=== PATIENT | male | born 1950 | race Caucasian/White ===

== ENCOUNTER 2017-03-18 08:15 | Day surgery (SDC) | payer MEDICARE, OTHER ==
[2017-03-18] MEDS ORDERED: LOSARTAN POT50 MG PO (08:40)
[2017-03-18] MEDS ORDERED: WARFARIN4 MG PO (08:40)
[2017-03-18 08:54] VITALS: BP 117/54
== END 2017-03-18 09:00 | disposition home or self-care (01) ==
LOC: ORM 08:15
PROVIDERS: ATTEND Urology
DX: N20.0 Calculus of kidney (principal); Z53.8 Procedure and treatment not carried out for other reasons
CPT/HCPCS: G0463; Q9967

== ENCOUNTER 2017-04-27 10:19 | Inpatient (IN) | payer MEDICARE, OTHER ==
[~2017-04-27] VITALS: Ht 190.5 cm; Wt 123.0 kg
[~2017-04-27 10:19] MED LIST: LOSARTAN POT50 MG PO; WARFARIN4 MG PO
--- NOTE | 2017-04-27 10:44 | NUR ---
PT TO ROOM FOR EXAM
--- NOTE | 2017-04-27 11:10 | NUR ---
INTRODUCED SELF TO PT. PT REPORTS BILATERAL FLANK PAIN AND PAINFUL URINATION. 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 TEMP 100.1. PT AWARE OF PLAN OF CARE AND WAIT TIME. CALL SIDDIQUI WITHIN REACH.
[2017-04-27 11:22] LABS: HEMATOCRIT 39.3 % (39.0-50.0); HEMOGLOBIN 12.8 g/dl (14.0-18.0); IMMATURE GRANULOCYTES 0.3 % (0.0-1.0); MEAN CELL VOLUME 92.5 fL CALC (80.0-100.0); MEAN CORPUSCULAR HGB 30.1 pG CALC (26.0-32.0); MEAN CORPUSCULAR HGB CONC 32.6 g/L CALC (32.0-36.0); NEUT# 9.4 thou/uL (1.82-7.42); RED BLOOD COUNT 4.25 mill/uL (4.70-6.10); RED CELL DISTRI WIDTH 13.8 % (11.5-15.5)
[2017-04-27 11:38] LABS: ALBUMIN 3.6 g/dL (3.2-5.0); ALKALINE PHOSPHATASE 86 u/l (38-126); ANION GAP 16 (6-22 (CALC)); BILIRUBIN, TOTAL 1.1 mg/dL (0.0-1.4); BUN 13 mg/dL (8-23); BUN/CREATININE RATIO 11 (12-20 (CALC)); CALCIUM 8.8 mg/dL (8.4-10.2); CARBON DIOXIDE 23 mmol/l (22-30); CHLORIDE 105 mmol/l (95-108); CREATININE 1.2 mg/dL (0.7-1.3); GFR > 60 ML/MIN (>=60 (CALC)); GFR FOR AFR.AMER. > 60 ML/MIN (>=60 (CALC)); GLUCOSE 102 mg/dL (82-115); SGOT/AST 16 u/l (19-48); SGPT/ALT 26 u/l (11-66); SODIUM 140 mmol/l (137-146); TOTAL PROTEIN 6.9 g/dL (6.3-8.2)
--- NOTE | 2017-04-27 11:55 | NUR ---
TEMP RECHECK 100.7. NOTIFIED AND AWITING NEW ORDERS. PT REQUESTING BLANKET AND INFORMED THAT HE IS UNABLE TO HAVE BLANKET UNTIL TEMP GOES DOWN. WILL CONTINUE TO MONITOR.
[2017-04-27 12:06] LABS: URINE BILIRUBIN - DIPSTICK SMALL (NEGATIVE); URINE BLOOD DIPSTICK LARGE (NEGATIVE); URINE COLOR YELLOW; URINE GLUCOSE - DIPSTICK NEGATIVE (NEGATIVE); URINE KETONE TRACE mg/dL (NEGATIVE); URINE LEUK ESTERASE MODERATE (NEGATIVE); URINE NITRITE - DIPSTICK NEGATIVE (Negative); URINE PROTEIN - DIPSTICK 100 mg/dL (NEG-TRACE); URINE SPECIFIC GRAVITY >=1.030; URINE UROBILINOGEN - DIPSTICK 0.2 E.U./dL (0.2)
[2017-04-27 12:07] LABS: URINE CLARITY TURBID
[2017-04-27] MEDS ORDERED: VESICARE5 M1 PO (12:16)
[2017-04-27] MEDS ORDERED: PROTONIX40 M2 PO (12:17)
[2017-04-27] MEDS ORDERED: PHENAZOPYRID100 MG PO (12:18)
[2017-04-27 12:21] LABS: URINE RBC TNTC RBC/hpf (0-5)
[2017-04-27] MEDS ORDERED: TAMSULOSIN HCL0.4 MG PO (12:21)
[2017-04-27] MEDS ORDERED: DITROPAN5 MG/TA1 PO (12:21)
[2017-04-27 12:22] LABS: URINE BACTERIA RARE hpf
[2017-04-27] MEDS ORDERED: TRAMADOL HCL50 MG PO (12:22)
--- NOTE | 2017-04-27 12:30 | NUR ---
FAMILY AT BEDSIDE AND WERE INFORMED OF PENDING RESULTS. PT RESTING COMFORTBALY IN BED SIDE CHAIR. MONITOR SHOWING A-FIB AT 82-100'S. PT DENIES ANY NEEDS AT THIS ITME. CALL SIDDIQUI WITHIN REACH.
--- NOTE | 2017-04-27 13:10 | NUR ---
IV ANTIBIOTICS INFUSING WITH NO DIFFICULTY. PT AWARE OF PENDING ADMISSION AND DENIES ANY NEEDS AT THIS TIME. CALL SIDDIQUI WITHIN REACH, WILL CONTINUE TO MONITOR.
--- NOTE | 2017-04-27 13:40 | NUR ---
REPORT CALLED TO RAYMOND MORRISON.
[2017-04-27 13:57] LABS: INTERNATIONAL NORMALIZED RATIO 3.8 RATIO (0.7-1.3); PROTHROMBIN TIME 43.6 SECONDS (9.0-12.5)
--- NOTE | 2017-04-27 14:00 | NUR ---
Admission Note Report Given to: RAYMOND MORRISON Transported by: X Wheelchair Stretcher Transported with: X Nurse Transporter X Patent IV O2 X Operations Professional
[2017-04-27 14:12] VITALS: BP 136/68
--- NOTE | 2017-04-27 15:00 | NUR ---
PT ARRIVED FROM ER AT 1410 AMBULATED TO THE BED FROM . IV SITE IS FREE FROM REDNESS OR EDEMA. NO DISTRESS NOTED. ASSESSMENT IS COMPLETED: TELE MONITOR IN PLACE.
--- NOTE | 2017-04-27 15:15 | NUR ---
ASSESSMENT IS COMPLETED: IV SITE IS FREE FROM REDNESS OR EDEMA. BREATH SOUNDS ARE CLEAR BILATERALLY, NO C/O SOB, HR IS REG,PULSES ARE STRONG X4. CONTINUE TO OBSERVE AND MONITOR,.
[2017-04-27 16:47] VITALS: BP 104/67
--- NOTE | 2017-04-27 18:00 | NUR ---
PT IS RELAXING IN BED WITH NO DISTRESS NOTED. IV SITE IS FREE FROM REDNESS OR EDEMA.
--- NOTE | 2017-04-27 19:33 | NUR ---
PATIENT SITTING UP IN THE BED WITH HOB ELEVATED WATCHING TV WITH AT BEDSIDE. PATIENT IS ALERT AND ORIENTEDX3 WITH NO COMPLAINTS AT THIS TIME. HEP LOCK LEFT AC-SITE APPEARS HEALTHY AT THIS TIME. SAFETY PRECAUTIONS REINFORCED. CALL LIGHT IN REACH. WILL CONT TO MONITOR.
[2017-04-27 19:51] VITALS: BP 106/56
--- NOTE | 2017-04-27 22:44 | NUR ---
PATIENT UP TO THE BR TO VOID 150CC OF BROWN EXTREMELY FOUL SMELLING URINE. URINE STRAINED WITH NO EVIDENCE OF STONES. BLADDER SCAN FOR 34CC AT THIS TIME. ENCOURAGED PO FLUIDS. NO COMPLAINTS AT THIS TIME. PATIENT C-PAP FROM HOME ON FOR SLEEP. SAFETY PRECAUTIONS REINFORCED.CALL LIGHT IN REACH. WILL CONT TO MONITOR.
--- NOTE | 2017-04-27 23:57 | NUR ---
PATIENT WITH FEVER 101.8-MEDICATED WITH TYLENOL 650MG PO. MAXIPIME INFUSING ORDERED. ENCOURAGED PO FLUIDS. CALL LIGHT IN REACH. WILL CONT TO MONITOR.
[2017-04-28] VITALS (7 sets, daily range): BP systolic 99–139; BP diastolic 56–79
--- NOTE | 2017-04-28 02:46 | NUR ---
RECIEVED CALL FROM ALEX IN THE ER STATES PATIENT HAD 8BEAT RUN OF A-LQNK-BZEOCGRXO TO PATIENT ROOM. PATIENT RESTING IN BED WITH C-PAP IN PLACE-EASY TO AROUSE-ASYMPTOMATIC. VS TAKEN AND WNL AND AFEBRILE. CALLED ER AND STATES THAT PATIENT IS NOW A-FIB-80'S. CALL LIGHT IN REACH. WILL CONT TO MONITOR.
--- NOTE | 2017-04-28 04:30 | NUR ---
PATIENT RESTING IN BED WITH C-PAP IN PLACE-APPEARS SLEEPING AT THIS TIME. CALL LIGHT IN REACH. WILL CONT TO MONITOR.
[2017-04-28 05:39] LABS: INTERNATIONAL NORMALIZED RATIO 3.2 RATIO (0.7-1.3); PROTHROMBIN TIME 37.2 SECONDS (9.0-12.5)
[2017-04-28 05:43] LABS: HEMATOCRIT 35.5 % (39.0-50.0); HEMOGLOBIN 11.4 g/dl (14.0-18.0); IMMATURE GRANULOCYTES 0.4 % (0.0-1.0); MEAN CELL VOLUME 93.2 fL CALC (80.0-100.0); MEAN CORPUSCULAR HGB 29.9 pG CALC (26.0-32.0); MEAN CORPUSCULAR HGB CONC 32.1 g/L CALC (32.0-36.0); NEUT# 7.48 thou/uL (1.82-7.42); RED BLOOD COUNT 3.81 mill/uL (4.70-6.10)
[2017-04-28 05:51] LABS: ANION GAP 14 (6-22 (CALC)); BUN 13 mg/dL (8-23); BUN/CREATININE RATIO 13 (12-20 (CALC)); CALCIUM 8.3 mg/dL (8.4-10.2); CARBON DIOXIDE 24 mmol/l (22-30); CHLORIDE 106 mmol/l (95-108); GFR > 60 ML/MIN (>=60 (CALC)); GFR FOR AFR.AMER. > 60 ML/MIN (>=60 (CALC)); GLUCOSE 100 mg/dL (82-115); POTASSIUM 3.6 mmol/l (3.5-5.1); SODIUM 140 mmol/l (137-146)
--- NOTE | 2017-04-28 07:45 | NUR ---
Pt. is sitting up in bed and is oriented to person, place, time. Pt. facial symmetry and movement is normal. Pupils are brisk 3mm, PERRLA. All lung nunes are clear. Pt's breathing is nonlabored and his respirations are normal. Pt bowel sounds are active in all four quadrants. Pt skin is free from edema, and complications. Pt. Temp at 0738 was 99.6, pt was medicated with tylenol 650 mg. Pt temp 58 minutes later had dropped to 98.9. Pt is on telemetry. Iv site # 22 RAC which is free from redness or edema. Pt's urine is dark russ color with cloudiness and sediment. Urine is being strained and shows no stones. Pt states he is not having any pain while urinating or difficulty urinating but still has some urgency. Pt. states that he does have some flank pain and it is a 4/10. Pt encouraged to drink plenty of fluids and has requested grape juice. Patient encouraged to use his call light if he needs something. Patient is sitting in his recliner watching television. Will continue to monitor.
--- NOTE | 2017-04-28 08:29 | NUR ---
ASSESSMENT IS COMPLETED: IV SITE IS FREE FROM REDNESS OR EDEMA. TELE MONITOR IN PLACE. NO DISTRESS NOTED. C/O POSSIBLY RUNNING A FEVER AGAIN. WAS 99.6 GAVE TYLENOL. CONTINUE TO OBSERVE AND MONITOR
--- NOTE | 2017-04-28 09:25 | NUR ---
Pt. showering, states he does not need assistance. Pt bed linens changed. Will continue to monitor.
--- NOTE | 2017-04-28 12:00 | NUR ---
PT IS VISITING WITH FAMILY NO DISTRESS NOTED. IV SITE IS FREE FROM REDNESS OR EDEMA.
--- NOTE | 2017-04-28 16:00 | NUR ---
PT IS RELAXING IN BED WITH NO DISTRESS NOTED. IV SITE IS FREE FROM REDNESS OR EDEMA.
--- NOTE | 2017-04-28 18:37 | NUR ---
CT MACHINE AVAILABLE AFTER 1300. DID NOT CALL FOR PT , PT IS WANTING TO WAIT UNTIL AM. CALLED XRAY AND THEY WILL REPULL UP THE ORDER. CONTINUE TO OBSERVE AND MONITOR.
--- NOTE | 2017-04-28 19:30 | NUR ---
PATIENT RESTING IN THE BED WITH C-PAP IN PLACE AT THIS TIME. AWAKE ALERT AND ORIENTEDX3 WITH AT BEDSIDE. WILL DO CT TONIGHT-AWAITING CALL BACK FROM RADIOLOGY. HEP LOCK TO RIGHT AC INTACT AND APPEARS HEALTHY AT THIS TIME. TEMP RECHECK AND IS 99.7 AFTER TYLENOL. CONT TO ENCOURAGE PO FLUIDS. URINE CONT TO BE BROWN AND FOUL SMELLING. SAFETY PRECAUTIONS REINFORCED. CALL LIGHT INREACH. WILL CONT TO MONITOR.
--- NOTE | 2017-04-28 20:30 | NUR ---
PATIENT HAD CT ABD/PELVIS COMPLETED AND BACK IN ROOM. RESTING ON COT PROVIDED-WILL BE STAYING WITH PATIENT TONIGHT. BACK WITH C-PAP IN PLACE FOR SLEEPING. CALL LIGHT IN REACH. WILL CONT TO MONITOR.
--- NOTE | 2017-04-29 | NUR ---
MAXIPIME INFUSING ORDERED. PATIENT WITH NO COMPLAINTS AT THIS TIME. CALL LIGHT IN REACH. WILL CONT TO MONITOR.
[2017-04-29 00:45] VITALS: BP 88/51
--- NOTE | 2017-04-29 04:17 | NUR ---
PATIENT ASSISTED UP TO THE BR TO VOID 200CC OF HERBERT URINE IN URINAL. ASSISTED BACK TO THE BED. PATIENT WITH NO COMPLAINTS AT THIS TIME OF FEELING DIZZY OR LIGHTHEADED. CALL LIGHT IN REACH. WILL CONT TO MONITOR.
[2017-04-29 05:13] VITALS: BP 103/65
[2017-04-29 06:36] LABS: HEMATOCRIT 34.1 % (39.0-50.0); HEMOGLOBIN 11.1 g/dl (14.0-18.0); IMMATURE GRANULOCYTES 0.4 % (0.0-1.0); MEAN CELL VOLUME 91.7 fL CALC (80.0-100.0); MEAN CORPUSCULAR HGB 29.8 pG CALC (26.0-32.0); MEAN CORPUSCULAR HGB CONC 32.6 g/L CALC (32.0-36.0); NEUT# 5.85 thou/uL (1.82-7.42); RED BLOOD COUNT 3.72 mill/uL (4.70-6.10); RED CELL DISTRI WIDTH 13.9 % (11.5-15.5)
[2017-04-29 06:46] LABS: ANION GAP 13 (6-22 (CALC)); BUN 12 mg/dL (8-23); BUN/CREATININE RATIO 14 (12-20 (CALC)); CALCIUM 8.5 mg/dL (8.4-10.2); CARBON DIOXIDE 24 mmol/l (22-30); CHLORIDE 107 mmol/l (95-108); CREATININE 0.9 mg/dL (0.7-1.3); GFR > 60 ML/MIN (>=60 (CALC)); GFR FOR AFR.AMER. > 60 ML/MIN (>=60 (CALC)); GLUCOSE 96 mg/dL (82-115); POTASSIUM 3.6 mmol/l (3.5-5.1); SODIUM 141 mmol/l (137-146)
--- NOTE | 2017-04-29 07:00 | NUR ---
PT SITTING IN CHAIR; DENIES PAIN AT THIS TIME; CALL SIDDIQUI WITHIN REACH; WILL CONTINUE TO MONITOR.
[2017-04-29 08:39] VITALS: BP 88/65
[2017-04-29 11:10] VITALS: BP 130/63
[2017-04-29 15:30] VITALS: BP 107/61
--- NOTE | 2017-04-29 16:34 | NUR ---
PT VISITING WITH FAMILY; DENIES PAIN; CALL SIDDIQUI WITHIN REACH; WILL CONTINUE TO MONITOR.
--- NOTE | 2017-04-29 16:48 | NUR ---
S: CHAVA HIGGINS is a 67 M who presents with pyelonephritis. Pt has history of pencillin allergy with reaction of hives. O: VS: BP 107/61, P 79, RR 18, T 97.3 W 123 kg, HT 75 in, Scr= 0.9, CrCl= 88 ml/min A: Blood culture is pending. Urine culture is growing Enterococcus faecalis which is sensitive to ampicillin and vancomycin. P: Patient's cefepime has been discontinued. Vancomycin ordered for pharmacy to dose. Start Vancomycin 1g IV Q8H. Vancomycin trough is drawn before the 4th dose on 04/30/17 @1630. Vancomycin goal trough is between 10-20 mcg/ml. Pharmacy will follow and or advise on antibiotics use as needed.
--- NOTE | 2017-04-29 18:20 | NUR ---
IV LEAKING AT SITE; REMOVED WITH CATH TIP INTACT, PRESSURE DRS APPLIED; PT REQUESTING TO TAKE A SHOWER BEFORE NEW IV ACCESS ESTABLISHED; WILL CONTINUE TO MONITOR.
[2017-04-29 18:30] VITALS: BP 113/54
--- NOTE | 2017-04-29 19:30 | NUR ---
PATIENT SITTING ON THE SIDE OF THE BED AFTER TAKING SHOWER. PATIENT ALERT AND ORIENTEDX3. NEW IV SITE STARTED TO RIGHT FOREARM-#22 GAUGE WITH GOOD BLOOD RETURN. VANCO CONT TO INFUSE. NO COMPLAINTS AT THIS TIME. AT BEDSIDE. EDUCATED REGUARDING ENTEROCOCCUS FAECALIS INFECTION. SAFETY PRECAUTION REINFORCED.CALL LIGHT IN REACH. WILL CONT TO MONITOR.
--- NOTE | 2017-04-29 23:00 | NUR ---
RECIEVED CALL FROM ALEX IN THE ER-9BEAT RUN OF V-TACK-165 THEN RIGHT BACK TO A-. PATIENT RESTING IN BED WITH C-PAP WITH NO COMPLAINTS AT THIS TIME. SKIN IS WARM AND DRY. DENIES ANY CHEST PAIN OR PALPATATIONS. CALL LIGHT IN REACH. WILL CONT TO MONITOR.
[2017-04-30 00:11] VITALS: BP 109/59
--- NOTE | 2017-04-30 00:36 | NUR ---
PATIENT APPEARS SLEEPING AT THIS TIME WITH EYES CLOSED AND C-PAP IN PLACE. RESTING ON COT PROVIDED. CALL LIGHT IN REACH. WILL CONT TO MONITOR.
--- NOTE | 2017-04-30 04:00 | NUR ---
APPEARS SLEEPING AT THIS TIME WITH C-PAP IN PLACE. RESTING ON COT PROVIDED. CALL LIGHT IN REACH. WILL CONT TO MONITOR.
[2017-04-30 05:00] VITALS: BP 103/60
--- NOTE | 2017-04-30 07:00 | NUR ---
RECEIVED BEDSIDE REPORT FROM CAMERON ALEJO. SITTING IN BEDSIDE CHAIR. RESPS EVEN AND UNLABORED ON ROOM AIR, TELE MONITOR IN PLACE. VOICES NO NEEDS AT THIS TIME. PLAN OF CARE DISCUSSED. SAFETY PRECAUTIONS REINFORCED. BED IN LOWEST POSITION WITH WHEELS LOCKED. CALL LIGHT WITHIN REACH. WILL CONTINUE TO MONITOR.
[2017-04-30 07:04] LABS: HEMATOCRIT 34.7 % (39.0-50.0); HEMOGLOBIN 11.1 g/dl (14.0-18.0); IMMATURE GRANULOCYTES 0.3 % (0.0-1.0); MEAN CELL VOLUME 92.3 fL CALC (80.0-100.0); MEAN CORPUSCULAR HGB 29.5 pG CALC (26.0-32.0); NEUT# 5.08 thou/uL (1.82-7.42); RED BLOOD COUNT 3.76 mill/uL (4.70-6.10); RED CELL DISTRI WIDTH 13.8 % (11.5-15.5)
[2017-04-30 07:19] LABS: ANION GAP 15 (6-22 (CALC)); BUN 13 mg/dL (8-23); BUN/CREATININE RATIO 15 (12-20 (CALC)); CALCIUM 8.7 mg/dL (8.4-10.2); CARBON DIOXIDE 21 mmol/l (22-30); CHLORIDE 110 mmol/l (95-108); CREATININE 0.9 mg/dL (0.7-1.3); GFR > 60 ML/MIN (>=60 (CALC)); GFR FOR AFR.AMER. > 60 ML/MIN (>=60 (CALC)); GLUCOSE 90 mg/dL (82-115); INTERNATIONAL NORMALIZED RATIO 2.8 RATIO (0.7-1.3); MAGNESIUM 2.1 mg/dL (1.6-2.3); PROTHROMBIN TIME 31.5 SECONDS (9.0-12.5); SODIUM 142 mmol/l (137-146)
[2017-04-30 08:45] VITALS: BP 90/56
[2017-04-30 11:00] VITALS: BP 98/48
--- NOTE | 2017-04-30 12:20 | NUR ---
SITTING IN BEDSIDE CHAIR. RESPS EVEN AND UNLABORED ON ROOM AIR, TELE MONITOR IN PLACE. VISITOR AT BEDSIDE. DENIES PAIN OR DISCOMFORT. DR OLIVER IN TO SEE PT, NEW ORDERS RECEIVED. CALL LIGHT WITHIN REACH. WILL CONTINUE TO MONITOR.
[2017-04-30] MEDS ORDERED: ZYVOX600 MG PO (13:41)
--- NOTE | 2017-04-30 16:00 | NUR ---
SITTING IN BEDSIDE CHAIR. RESPS EVEN AND UNLABORED ON ROOM AIR. #22 RFA INFUSING WITHOUT DIFFICULTY, SITE APPEARS HEALTHY. DENIES PAIN OR DISCOMFORT. CALL LIGHT WITHIN REACH. WILL CONTINUE TO MONITOR.
[2017-04-30 16:06] VITALS: BP 110/48
--- NOTE | 2017-04-30 18:39 | NUR ---
Discharge instructions given. Patient verbalizes understanding of same. Discharged in condition via Wheelchair to Home with spouse. All belongings sent with pt.
== END 2017-04-30 18:37 | disposition home or self-care (01) | DRG 872 ==
LOC: ED 10:19 → ED-I 12:18 → ED 12:34 → MS2 12:35
PROVIDERS: Emergency Medicine; Nurse Practitioner Family; ADMIT Internal Medicine; ATTEND Internal Medicine
DX: A41.9 Sepsis, unspecified organism (principal); D68.32 Hemorrhagic disorder due to extrinsic circulating anticoagulants; I48.2 Chronic atrial fibrillation; N10 Acute pyelonephritis; N20.2 Calculus of kidney with calculus of ureter; R31.9 Hematuria, unspecified; I10 Essential (primary) hypertension; G47.33 Obstructive sleep apnea (adult) (pediatric); M19.90 Unspecified osteoarthritis, unspecified site; T45.515A Adverse effect of anticoagulants, initial encounter; B95.2 Enterococcus as the cause of diseases classified elsewhere; Z88.0 Allergy status to penicillin; Z87.442 Personal history of urinary calculi; Z87.891 Personal history of nicotine dependence; Z98.84 Bariatric surgery status; Z96.0 Presence of urogenital implants
CPT/HCPCS: G0378; J0692

== ENCOUNTER 2017-05-23 07:08 | Inpatient (IN) | payer MEDICARE, OTHER ==
[~2017-05-23] VITALS: Ht 190.5 cm; Wt 124.7 kg
[~2017-05-23 07:08] MED LIST changes: +DITROPAN5 MG/TA1 PO; +PHENAZOPYRID100 MG PO; +PROTONIX40 M2 PO; +TAMSULOSIN HCL0.4 MG PO; +TRAMADOL HCL50 MG PO; +VESICARE5 M1 PO; +ZYVOX600 MG PO
--- NOTE | 2017-05-23 07:35 | NUR ---
PT RESTING ON DIANA, TEMP 102.3 MD AWARE, WILL OBTAINED IV ACCESS AND START MEDICATIONS ORDERED, CALL SIDDIQUI WITHIN REACH, AND COMFOR MEASURES PROVIDED.
[2017-05-23 08:00] LABS: HEMATOCRIT 33.4 % (39.0-50.0); HEMOGLOBIN 10.8 g/dl (14.0-18.0); IMMATURE GRANULOCYTES 0.4 % (0.0-1.0); MEAN CORPUSCULAR HGB 29.4 pG CALC (26.0-32.0); MEAN CORPUSCULAR HGB CONC 32.3 g/L CALC (32.0-36.0); NEUT# 9.71 thou/uL (1.82-7.42); RED BLOOD COUNT 3.67 mill/uL (4.70-6.10); RED CELL DISTRI WIDTH 15.9 % (11.5-15.5)
[2017-05-23 08:12] LABS: INFLUENZA A NONE DETECTED (NONE DETECT); INFLUENZA B NONE DETECTED (NONE DETECT)
[2017-05-23 08:17] LABS: INTERNATIONAL NORMALIZED RATIO 3.8 RATIO (0.7-1.3); PROTHROMBIN TIME 43.9 SECONDS (9.0-12.5)
[2017-05-23 08:18] LABS: ALKALINE PHOSPHATASE 90 u/l (38-126); ANION GAP 14 (6-22 (CALC)); BILIRUBIN, TOTAL 2.2 mg/dL (0.0-1.4); BUN 12 mg/dL (8-23); BUN/CREATININE RATIO 12 (12-20 (CALC)); CARBON DIOXIDE 22 mmol/l (22-30); CHLORIDE 105 mmol/l (95-108); CREATININE 0.9 mg/dL (0.7-1.3); GFR > 60 ML/MIN (>=60 (CALC)); GFR FOR AFR.AMER. > 60 ML/MIN (>=60 (CALC)); POTASSIUM 3.8 mmol/l (3.5-5.1); SGOT/AST 18 u/l (19-48); SGPT/ALT 33 u/l (11-66); SODIUM 137 mmol/l (137-146); TOTAL PROTEIN 5.7 g/dL (6.3-8.2)
--- NOTE | 2017-05-23 08:33 | NUR ---
PT RESTING ON STRETCHER AFTER CT COMPLETED, TEMP 103.7 TYM MEDICATED WITH MOTRIN PT TOOK 1000MG TYLENOL AT HOME AT 0500 PER HIM. PT STATES HE HAD LITHOTRIPSY WITH STENTS THEN GOT AN INFECTIN AFTER DAFNE AND WAS HERE FOR 4 DAYS AT THAT TIME, COMPLAINS OF BURNING WITH URINATIONA DN BROUGHT URINE SPECIMEN TO O.P. YESTERDAY PER ORDER FROM HIS PRIMARY MD, IVF AND ABT INFUSING ORDERED, COMFORT MEASURES PROVIDED.
--- NOTE | 2017-05-23 09:30 | NUR ---
URINE SPECIMEN SENT
[2017-05-23 10:08] LABS: URINE BLOOD DIPSTICK LARGE (NEGATIVE); URINE GLUCOSE - DIPSTICK NEGATIVE (NEGATIVE); URINE KETONE TRACE mg/dL (NEGATIVE); URINE PROTEIN - DIPSTICK 100 mg/dL (NEG-TRACE); URINE SPECIFIC GRAVITY 1.025
--- NOTE | 2017-05-23 10:15 | NUR ---
PT AWARE OF PLANNED ADMISSION AND PLAN OF CARE, WILL CALL REPORT
[2017-05-23 10:18] LABS: URINE BILIRUBIN - DIPSTICK MODERATE (NEGATIVE); URINE CLARITY TURBID; URINE COLOR BROWN; URINE LEUK ESTERASE MODERATE (NEGATIVE); URINE NITRITE - DIPSTICK POSITIVE (Negative)
--- NOTE | 2017-05-23 11:00 | NUR ---
REPORT CALLED TO PAULA ALEJO ON MED SURG TELE BOX [id number] ASSIGNED
--- NOTE | 2017-05-23 11:05 | NUR ---
Admission Note Report Given to: ALISSA ALEJO Transported by: Wheelchair X Stretcher Transported with: X Nurse Transporter X Patent IV O2 X Senior Branch Manager
--- NOTE | 2017-05-23 11:15 | NUR ---
PT.ARRIVED TO FLOOR VIA STRETCHER ACCOMPANIED BY ED NURSE. PT.APPEARS TO BE IN GOOD CONDITION. C/O MILD PAIN IN LOWER BACK "KIDNEY." PT.IS BEING ORIENTED TO ROOM, CALL SYSTEM, LIGHTS, TV AND BED. WILL FOLLOW-UP WITH FULL ASSESSMENT. V/S ARE BEING ASSESSED AT THIS TIME. CALL LIGHT AT SIDE
[2017-05-23 11:29] VITALS: BP 104/69
[2017-05-23 13:25] VITALS: BP 144/75
--- NOTE | 2017-05-23 15:36 | NUR ---
The consult for was called and I spoke with the secretay laly @ 1235
[2017-05-23 15:59] VITALS: BP 131/63
--- NOTE | 2017-05-23 16:22 | NUR ---
Talked to patient about his medications. He said that he felt better but still has some fever and chills occasionally. Discussed side effects of oxybutynin and tamsulosin to him. He reported no side effects with these medications. Pt. said not having bruising nor blood in stool even though his current status is supratherapeutic INR. He does not experience side effects with any other medications. He does not have any other questions to the pharmacy at this time.
--- NOTE | 2017-05-23 17:19 | NUR ---
PT.HAS BEEN MEDICATED WITH TYLENOL AND TEMP IS STILL HOLDING @100.7 SHEET ONLY ON PT.,COOL PACKS PLACED AND ROOM TEMP LOWERED.
--- NOTE | 2017-05-23 19:15 | NUR ---
PT RESTING IN BED WATCHING TV. PT IS ALERT AND ORIENTED X3. PERRLA. LUNGS ARE CLEAR. RESP ARE EVEN AND UNLABORED. NO DISTRESS NOTED. HR REGULAR. PULSES PALPABLE THROUGHOUT. NO EDEMA NOTED. BS ACTIVE. #20 RFA NS @100CC/HR. NO REDNESS OR EDEMA NOTED. PT CONTINUES TO BE FEBRILE. WILL MEDICATE ORDERED. WILL CONTINUE TO MONITOR
[2017-05-23 19:33] VITALS: BP 113/56
--- NOTE | 2017-05-23 22:20 | NUR ---
MEDICATED PT WITH TORADOL FOR TEMP
--- NOTE | 2017-05-23 23:13 | NUR ---
TEMP 101.5. WILL CONTINUE TO MONITOR
[2017-05-24] VITALS (7 sets, daily range): BP systolic 88–140; BP diastolic 51–63
--- NOTE | 2017-05-24 | NUR ---
PT RESTING IN BED WITH EYES CLOSED. AROUSES EASILY TO VERBAL STIMULI. CPAP IN PLACE. RESP ARE EVEN AND UNLABORED. NO DISTRESS NOTED. PT VOICES NO COMPLAINTS AT THIS TIME. WILL CONTINUE TO MONITOR.
--- NOTE | 2017-05-24 04:08 | NUR ---
PT RESTING IN BED WITH EYES CLOSED. AROUSES EASILY TO VERBAL STIMULI. RESP ARE EVEN AND UNLABORED. NO DISTRESS NOTED. VOICES NO COMPLAINTS AT THIS TIME. WILL CONTINUE TO MONITOR
--- NOTE | 2017-05-24 04:30 | NUR ---
TEMP 99.9
--- NOTE | 2017-05-24 05:26 | NUR ---
TEMP 98.4
[2017-05-24 06:28] LABS: HEMATOCRIT 31.4 % (39.0-50.0); HEMOGLOBIN 10.2 g/dl (14.0-18.0); IMMATURE GRANULOCYTES 0.7 % (0.0-1.0); MEAN CELL VOLUME 91.8 fL CALC (80.0-100.0); MEAN CORPUSCULAR HGB 29.8 pG CALC (26.0-32.0); MEAN CORPUSCULAR HGB CONC 32.5 g/L CALC (32.0-36.0); NEUT# 12.54 thou/uL (1.82-7.42); RED BLOOD COUNT 3.42 mill/uL (4.70-6.10)
--- NOTE | 2017-05-24 06:35 | NUR ---
ER CALLED AND STATED THAT PT HAD A 7 BEAT RUN OF VTAHC. BP 107/70 HR [address] OLIVER NOTIFIED WILL CONTINUE TO MONITOR
[2017-05-24 06:42] LABS: ANION GAP 13 (6-22 (CALC)); BUN 15 mg/dL (8-23); BUN/CREATININE RATIO 13 (12-20 (CALC)); CARBON DIOXIDE 23 mmol/l (22-30); CHLORIDE 104 mmol/l (95-108); CREATININE 1.2 mg/dL (0.7-1.3); GFR > 60 ML/MIN (>=60 (CALC)); GFR FOR AFR.AMER. > 60 ML/MIN (>=60 (CALC)); MAGNESIUM 1.7 mg/dL (1.6-2.3); POTASSIUM 3.7 mmol/l (3.5-5.1); SODIUM 137 mmol/l (137-146)
[2017-05-24 06:43] LABS: INTERNATIONAL NORMALIZED RATIO 2.7 RATIO (0.7-1.3); PROTHROMBIN TIME 30.8 SECONDS (9.0-12.5)
--- NOTE | 2017-05-24 10:30 | NUR ---
PT.MEDICATED ORDERS PROVIDE. PT. IS HERE WITH CLOTHES AND PT.IS PLANNING ON GETTING A SHOWER. INDUSTRIAL MANUFACTURING TECHNICIAN IN TO ASSIST NEEDED.
--- NOTE | 2017-05-24 10:56 | NUR ---
S: CHAVA HIGGINS is a 67 M who presents with pyelonephritis. He has a history of kidney stones, kidney surgeries and diabetes. All medications in patient's chart were reviewed. O: VS: BP 88/51, P 89, RR 18,T 99.8 W 124.7 kg, HT 75 in, Scr=1.2, CrCl= 73.4 ml/min A: Blood culture is pending. Urine culture preliminary results showing gram positive cocci. P: Patient is on ertapenem 1 g IV q24h. Vancomycin ordered for pharmacy to dose. Start Vancomycin 1500 mg IV Q12H. Vancomycin trough is drawn before the 4th dose on 05/25 @2130. Vancomycin goal trough is between 10-15 mcg/ml. Pharmacy will follow and or advise on antibiotics use as needed.
--- NOTE | 2017-05-24 10:58 | NUR ---
PT.UPRIGHT IN RECLINER WITH A SMILE UPON ENTERING THE ROOM. PT.DENIES PAIN/N/V AT THIS TIME. SHE REPORTS BM THIS AM AND NO BURNING OR DIFFICULTY URINATING. PT.DID ASK "WHEN AM I GETTING OUT OF HERE?" PT.IS LOC TO SELF//LOCATION, BUT CONFUSED WHEN ASKED YEAR AND PRESIDENT. PT.MEDICATED WITH AM MEDICATIONS ORDERED AND REORIENTED TO CALL LIGHT.
--- NOTE | 2017-05-24 12:55 | NUR ---
PT.MEDICATED FOR TEMP 100.8, ROOM COOLED. IS AT BEDSIDE, PT.DENIES ANY NEEDS AT THIS TIME
--- NOTE | 2017-05-24 16:20 | NUR ---
PT.MEDICATED W/IV ANTIBIOTICS. DENIES ANY NEEDS AT THIS TIME. PT.LEFT UPRIGHT IN BED W/CALL LIGHT IN HAND AND TV ON.
--- NOTE | 2017-05-24 19:25 | NUR ---
REPORT RECEIVED FROM SAPNA MAXWELL;UPON ENTERING THE ROOM PT APPEARS TO BE SLEEPING IN SEMI FOWLERS POSITION;HOME CPAP ON AND RESPIRATIONS APPEAR EVEN AND UNLABORED;NO S/S OF DISTRESS NOTED;TELE MONITOR IN PLACE;WILL CONTINUE TO MONITOR
--- NOTE | 2017-05-24 20:25 | NUR ---
PT SLEEPING IN SEMI FOWLERS POSITION AWAKENS TO VERBAL STIMULI;PT A&O X3;RESPIRATIONS EVEN AND UNLABORED;CURRENT TEMP 101.8,BLANKETS REMOVED,AC LOWERED AND ICE PACKS PROVIDED;PT MEDICATED WITH PRN TORDAL IVP;ASSESSMENT COMPLETED;#20G TO RIGHT FOREARM INFUSING NS @ 100ML/HR WELL,SITE APPEARS HEALTHY;CLEAR LUNG SOUNDS NOTED;ABDOMEN DISTENDED,SOFT;PERRLA;TELE MONITOR IN PLACE;PT REPORTS NO PAIN AND IS EDUCATED ON PAIN SCALE AND REPORTING;FALL PRECAUTIONS IN PLACE WITH CALL LIGHT IN REACH;WILL CONTINUE TO MONITOR
--- NOTE | 2017-05-24 20:30 | NUR ---
NOTIFIED OF 10 BEAT RUN OF V-TACH;PT ASYMPTOMATIC;STABLE VS;NO NEW ORDERS RECEIVED
--- NOTE | 2017-05-24 21:15 | NUR ---
TEMP RE-CHECK 99.7
--- NOTE | 2017-05-24 22:30 | NUR ---
PT HAD 14 BEAT RUN OF V-TACH;HR 105 BP 100/56;PT DENIES ANY PAIN OR DISCOMFORTS;MD TO BE NOTIFIED
--- NOTE | 2017-05-24 23:35 | NUR ---
PT APPEARS TO BE SLEEPING IN SEMI FOWLERS POSITION;WOKE PT TO OBTAIN VS;CURRENT TEMP 98.4;RESPIRATIONS EVEN AND UNLABORED WITH HOME CPAP ON;TELE MONITOR IN PLACE;IV FLUIDS INFUSING WELL TO RIGHT FOREARM;PT DENIES ANY NEEDS;URINAL AT BEDSIDE;CALL LIGHT IN REACH;WILL CONTINUE TO MONITOR
--- NOTE | 2017-05-25 03:30 | NUR ---
PT AWAKE RESTING IN BED;PT DENIES ANY PAIN;TELE MONITOR IN PLACE;IV FLUIDS INFUSING WELL TO RIGHT FOREARM;URINAL AT BEDSIDE;PT EDUCATED ON MORNING VS AND VERBALIZES UNDERSTANDING;PT ENCOURAGED TO CALL FOR ASSISTANCE IF NEEDED;CALL LIGHT IN REACH;WILL CONTINUE TO MONITOR
[2017-05-25 04:30] VITALS: BP 127/73
--- NOTE | 2017-05-25 04:30 | NUR ---
TEMP RE-CHECK 98.4
[2017-05-25 05:12] LABS: HEMATOCRIT 30.4 % (39.0-50.0); IMMATURE GRANULOCYTES 0.5 % (0.0-1.0); MEAN CELL VOLUME 91.6 fL CALC (80.0-100.0); MEAN CORPUSCULAR HGB 30.1 pG CALC (26.0-32.0); MEAN CORPUSCULAR HGB CONC 32.9 g/L CALC (32.0-36.0); NEUT# 8.59 thou/uL (1.82-7.42); RED BLOOD COUNT 3.32 mill/uL (4.70-6.10); RED CELL DISTRI WIDTH 15.9 % (11.5-15.5)
[2017-05-25 05:30] LABS: ANION GAP 13 (6-22 (CALC)); BUN 16 mg/dL (8-23); BUN/CREATININE RATIO 14 (12-20 (CALC)); CARBON DIOXIDE 22 mmol/l (22-30); CHLORIDE 104 mmol/l (95-108); CREATININE 1.2 mg/dL (0.7-1.3); GFR > 60 ML/MIN (>=60 (CALC)); GFR FOR AFR.AMER. > 60 ML/MIN (>=60 (CALC)); MAGNESIUM 1.8 mg/dL (1.6-2.3); POTASSIUM 3.8 mmol/l (3.5-5.1); SODIUM 135 mmol/l (137-146)
[2017-05-25 09:49] VITALS: BP 111/75
--- NOTE | 2017-05-25 09:54 | NUR ---
PT.UPRIGHT IN RECLINER. V/S ASSESSED AND AM MEDICATIONS ADMINISTERED. 200CC OF TEA COLORED URINE EMPTIED FROM URINAL. PT.REPORTS STILL HAVING BURNING AND FREQUENT URINATION/NO DIFFICULTY. LUNG SOUNDS ARE CLEAR. BM REPORTED TODAY. CALL LIGHT W/IN REACH, PT.DENIES ANY OTHER NEEDS OF ASSISTANCE AT THIS TIME.
[2017-05-25 12:00] VITALS: BP 115/75
[2017-05-25 14:45] LABS: INTERNATIONAL NORMALIZED RATIO 1.8 RATIO (0.7-1.3); PROTHROMBIN TIME 20.9 SECONDS (9.0-12.5)
[2017-05-25 15:34] VITALS: BP 118/64
--- NOTE | 2017-05-25 16:30 | NUR ---
PT.IS UPRIGHT IN THE RECLINER AT THIS TIME. PT.MEDICATED ORDERS PROVIDE AND OFFERED ASSISTANCE. WATER PROVIDED, PT.DENIES ANY OTHER ASSISTANCE IS NEEDED AT THIS TIME. CALL LIGHT IS AT SIDE AND PT.ENCOURAGED TO CALL IF ANY NEEDS ARISE.
[2017-05-25 18:00] VITALS: BP 113/66
--- NOTE | 2017-05-25 18:15 | NUR ---
PT.IS IN BED UPRIGHT W/TV ON AT THIS TIME. PT.DENIES ANY NEEDS. CALL LIGHT W/IN REACH
--- NOTE | 2017-05-25 20:30 | NUR ---
PT APPEARS TO BE SLEEPING IN SEMI FOWLERS POSITION WITH HOME CPAP ON;WOKE PT TO COMPLETE ASSESSMENT;A&O X3;PT CURRENT TEMP 100.0;AC LOWERED,BLANKETS REMOVED AND TORADOL 30MG IVP GIVEN;#20G TO RIGHT FOREARM INFUSING NS @ 100ML/HR WELL;RESPIRATIONS EVEN AND UNLABORED,CLEAR LUNG SOUNDS;PT DENIES ANY PAIN OR DISCOMFORTS;SKIN INTACT;URINAL AT BEDSIDE,PO FLUIDS ENCOURAGED;SAFETY PRECAUTIONS REINFORCED;CALL LIGHT IN REACH;WILL CONTINUE TO MONITOR
[2017-05-26 00:35] VITALS: BP 97/57
--- NOTE | 2017-05-26 00:35 | NUR ---
PT APPEARS TO BE SLEEPING IN SEMI FOWLERS POSITION;WOKE PT TO OBTAIN VS;CURRENT TEMP 96.9;RESPIRATIONS EVEN AND UNLABORED WITH HOME CPAP ON;IV FLUIDS INFUSING WELL TO RIGHT FOREARM;TELE MONITOR IN PLACE;PT ENCOURAGED TO CALL FOR ASSISTANCE IF NEEDED;CALL LIGHT IN REACH;WILL CONTINUE TO MONITOR
[2017-05-26 04:10] VITALS: BP 104/57
--- NOTE | 2017-05-26 04:10 | NUR ---
PT APPEARS TO BE SLEEPING IN SEMI FOWLERS POSITION WITH HOME CPAP ON;VS OBTAINED;IV FLUIDS INFUSING WELL;TELE MONITOR IN PLACE;PT DENIES ANY PAIN OR DISCOMFORTS;CURRENT TEMP 97.6;BED IN LOWEST POSITION WITH CALL LIGHT IN REACH;WILL CONTINUE TO MONITOR
[2017-05-26 05:33] LABS: HEMATOCRIT 29.6 % (39.0-50.0); HEMOGLOBIN 9.4 g/dl (14.0-18.0); MEAN CELL VOLUME 91.6 fL CALC (80.0-100.0); MEAN CORPUSCULAR HGB 29.1 pG CALC (26.0-32.0); MEAN CORPUSCULAR HGB CONC 31.8 g/L CALC (32.0-36.0); RED BLOOD COUNT 3.23 mill/uL (4.70-6.10)
[2017-05-26 05:40] LABS: ANION GAP 11 (6-22 (CALC)); BUN 17 mg/dL (8-23); BUN/CREATININE RATIO 17 (12-20 (CALC)); CARBON DIOXIDE 23 mmol/l (22-30); CHLORIDE 106 mmol/l (95-108); GFR > 60 ML/MIN (>=60 (CALC)); GFR FOR AFR.AMER. > 60 ML/MIN (>=60 (CALC)); POTASSIUM 3.7 mmol/l (3.5-5.1); SODIUM 136 mmol/l (137-146)
[2017-05-26 05:44] LABS: INTERNATIONAL NORMALIZED RATIO 1.8 RATIO (0.7-1.3); PROTHROMBIN TIME 20.8 SECONDS (9.0-12.5)
--- NOTE | 2017-05-26 07:00 | NUR ---
SHIFT CHANGE REPORT FROM TOMÁS GARZA AWAKE ALERT AND ORIENTED SITTING UP IN RECLINER, NO C/O DISCOMFORT AT THIS TIME, TELE MONITOR IN PLACE, DARK BLOODY URINE OBSERVED IN URINAL. CALL SIDDIQUI IN REACH.
[2017-05-26 07:30] VITALS: BP 103/66
--- NOTE | 2017-05-26 07:49 | NUR ---
PT ALERT AND ORIENTED X3. PT REQUESTING A SHOWER AT THIS TIME. VITAL SIGNS OBTAINED AND ASSSESMENT COMPLETE. LUNG SOUNDS CLEAR; RESPIRATIONS EVEN AND UNLABORED, PT HX OF AFIB RATE AT 75. EYES PERRL. DIRECTOR LABOR STANDARDS EQUAL, STRONG RADIAL AND PEDAL PULSES. ABD SOFT AND NON-TENDER AT THIS TIME; ACTIVE BOWEL SOUNDS NOTED IN ALL QUADRANTS SKIN INTACT.NO EDEMA NOTED #20 TO THE RIGHT FOREARM COVERED TO KEEP DRY WHILE IN THE SHOWER; NO REDNESS OR EDEMA NOTED. URINE STILL CONTINUES TO BE A DARK AND TEA COLORED. PT REMAINS AFEBRILE 98.0. VITAL SIGNS STABLE. PT WALKED TO BATHROOM WITH STEADY GAIT TO SHOWER. PT INSTRUCTED TO CALL FOR ANYTHING IF NEEDED. LINENS CHANGED.
--- NOTE | 2017-05-26 08:22 | NUR ---
PT OUT OF THE SHOWER, TOLERATED WELL. COVER REMOVED FOR FOREARM IV STILL INTACTED. TELE REAPPLIED. PT VOICING NO NEW COMPLAINTS AT THIS TIME. SITTING IN CHAIR EATING BREAKFAST. CALL ISDDIQUI IN REACH. WILL CONTINUE TO MONITOR.
[2017-05-26 11:20] VITALS: BP 104/55
--- NOTE | 2017-05-26 11:28 | NUR ---
VITAL SIGNS OBTAINED; STABLE. PT REMAINS AFEBRILE AT 97.9. PT VOICING NO NEW COMPLAINTS. CALL SIDDIQUI IN REACH. WILL CONTINUE TO MONITOR.
[2017-05-26] MEDS ORDERED: LOPRESSOR25 MG PO ×2 (12:42→12:46)
[2017-05-26] MEDS ORDERED: ZYVOX600 MG PO (12:46)
== END 2017-05-26 14:30 | disposition home or self-care (01) | DRG 872 ==
LOC: ED 07:08 → ED-I 09:03 → ED 10:22 → MS2 10:23
PROVIDERS: Family Medicine; Internal Medicine; Nurse Practitioner Family; ADMIT Internal Medicine; ATTEND Internal Medicine
DX: A41.9 Sepsis, unspecified organism (principal); I47.2 Ventricular tachycardia; I48.2 Chronic atrial fibrillation; N10 Acute pyelonephritis; E11.9 Type 2 diabetes mellitus without complications; B96.20 Unspecified Escherichia coli [E. coli] as the cause of diseases classified elsewhere; N39.0 Urinary tract infection, site not specified; D64.9 Anemia, unspecified; E66.9 Obesity, unspecified; N20.0 Calculus of kidney; B95.2 Enterococcus as the cause of diseases classified elsewhere; I10 Essential (primary) hypertension; M19.90 Unspecified osteoarthritis, unspecified site; J45.909 Unspecified asthma, uncomplicated; G89.4 Chronic pain syndrome; G47.33 Obstructive sleep apnea (adult) (pediatric); T45.515A Adverse effect of anticoagulants, initial encounter; R79.1 Abnormal coagulation profile; Z96.0 Presence of urogenital implants; Z98.84 Bariatric surgery status; Z87.442 Personal history of urinary calculi; Z79.4 Long term (current) use of insulin; Z87.440 Personal history of urinary (tract) infections; Z87.891 Personal history of nicotine dependence; Z68.34 Body mass index [BMI] 34.0-34.9, adult
CPT/HCPCS: J1335; J2020; J3370

== ENCOUNTER → 2018-01-22 | Outpatient (REF) | payer MEDICARE, OTHER ==
[~2018-01-22] MED LIST changes: +LOPRESSOR25 MG PO
[2018-01-22 17:25] LABS: HEMATOCRIT 41.8 % (39.0-50.0); HEMOGLOBIN 13.1 g/dl (14.0-18.0); MEAN CELL VOLUME 90.1 fL CALC (80.0-100.0); MEAN CORPUSCULAR HGB 28.2 pG CALC (26.0-32.0); MEAN CORPUSCULAR HGB CONC 31.3 g/L CALC (32.0-36.0); RED BLOOD COUNT 4.64 mill/uL (4.70-6.10); RED CELL DISTRI WIDTH 17.9 % (11.5-15.5)
[2018-01-22 17:31] LABS: ALBUMIN 3.7 g/dL (3.2-5.0); ALKALINE PHOSPHATASE 94 u/l (38-126); ANION GAP 10 (6-22 (CALC)); BUN 18 mg/dL (8-23); BUN/CREATININE RATIO 16 (12-20 (CALC)); CARBON DIOXIDE 29 mmol/l (22-30); CHLORIDE 106 mmol/l (95-108); CREATININE 1.1 mg/dL (0.7-1.3); GFR > 60 ML/MIN (>=60 (CALC)); GFR FOR AFR.AMER. > 60 ML/MIN (>=60 (CALC)); POTASSIUM 4.1 mmol/l (3.5-5.1); SGOT/AST 28 u/l (19-48); SODIUM 141 mmol/l (137-146); TOTAL PROTEIN 6.6 g/dL (6.3-8.2)
== END | disposition home or self-care (01) ==
LOC: LAB 15:45
PROVIDERS: ATTEND Internal Medicine
DX: D50.9 Iron deficiency anemia, unspecified (principal); E53.8 Deficiency of other specified B group vitamins; E55.9 Vitamin D deficiency, unspecified

== ENCOUNTER 2018-09-12 08:27 | Emergency (ER) | payer MEDICARE, OTHER ==
[~2018-09-12] VITALS: Ht 190.5 cm; Wt 110.0 kg
[2018-09-12 09:54] LABS: HEMATOCRIT 42.7 % (39.0-50.0); HEMOGLOBIN 13.5 g/dl (14.0-18.0); IMMATURE GRANULOCYTES 0.3 % (0.0-5.0); MEAN CORPUSCULAR HGB 29.4 pG CALC (26.0-32.0); MEAN CORPUSCULAR HGB CONC 31.6 g/L CALC (32.0-36.0); NEUT# 4.86 thou/uL (1.82-7.42); RED BLOOD COUNT 4.59 mill/uL (4.70-6.10); RED CELL DISTRI WIDTH 14.6 % (11.5-15.5)
[2018-09-12 10:04] LABS: ALKALINE PHOSPHATASE 88 u/l (38-126); BUN 15 mg/dL (8-23); BUN/CREATININE RATIO 16 (12-20 (CALC)); CHLORIDE 108 mmol/l (95-108); GFR > 60 ML/MIN (>=60 (CALC)); GFR FOR AFR.AMER. > 60 ML/MIN (>=60 (CALC)); POTASSIUM 4.2 mmol/l (3.5-5.1); SGOT/AST 31 u/l (19-48); SODIUM 139 mmol/l (137-146); TOTAL PROTEIN 6.9 g/dL (6.3-8.2)
[2018-09-12 10:05] LABS: ANION GAP 13 (6-22 (CALC)); BILIRUBIN, TOTAL 2.4 mg/dL (0.0-1.4); CARBON DIOXIDE 22 mmol/l (22-30)
[2018-09-12] MEDS ORDERED: Levaquin PO (10:10)
[2018-09-12] MEDS ORDERED: ROBITUSSIN200 MG/10 PO (10:10)
[2018-09-12 10:12] VITALS: BP 133/63
== END 2018-09-12 10:19 | disposition home or self-care (01) ==
LOC: ED 08:27
PROVIDERS: Emergency Medicine
DX: J06.9 Acute upper respiratory infection, unspecified (principal); E11.9 Type 2 diabetes mellitus without complications; I10 Essential (primary) hypertension
CPT/HCPCS: J1956

== ENCOUNTER 2018-09-14 16:12 | Inpatient (IN) | payer MEDICARE, OTHER ==
[~2018-09-14] VITALS: Ht 188 cm; Wt 132.8 kg
[~2018-09-14 16:12] MED LIST changes: +Levaquin PO; +ROBITUSSIN200 MG/10 PO
--- NOTE | 2018-09-14 16:14 | NUR ---
PATIENT TO ROOM VIA WHEELCHIAR.
[2018-09-14 16:56] LABS: HEMATOCRIT 41.3 % (39.0-50.0); HEMOGLOBIN 13.4 g/dl (14.0-18.0); IMMATURE GRANULOCYTES 0.4 % (0.0-5.0); MEAN CORPUSCULAR HGB 29.5 pG CALC (26.0-32.0); MEAN CORPUSCULAR HGB CONC 32.4 g/L CALC (32.0-36.0); NEUT# 4.63 thou/uL (1.82-7.42); RED BLOOD COUNT 4.54 mill/uL (4.70-6.10); RED CELL DISTRI WIDTH 14.6 % (11.5-15.5)
[2018-09-14 17:11] LABS: ALBUMIN 3.7 g/dL (3.2-5.0); ALKALINE PHOSPHATASE 75 u/l (38-126); ANION GAP 13 (6-22 (CALC)); BILIRUBIN, TOTAL 1.4 mg/dL (0.0-1.4); BUN 17 mg/dL (8-23); BUN/CREATININE RATIO 18 (12-20 (CALC)); CARBON DIOXIDE 21 mmol/l (22-30); CHLORIDE 107 mmol/l (95-108); CREATININE 0.9 mg/dL (0.7-1.3); GFR > 60 ML/MIN (>=60 (CALC)); GFR FOR AFR.AMER. > 60 ML/MIN (>=60 (CALC)); POTASSIUM 3.8 mmol/l (3.5-5.1); SGOT/AST 26 u/l (19-48); SODIUM 138 mmol/l (137-146); TOTAL PROTEIN 6.8 g/dL (6.3-8.2)
[2018-09-14 17:15] LABS: INTERNATIONAL NORMALIZED RATIO 3.6 RATIO (0.7-1.3); PROTHROMBIN TIME 37.5 SECONDS (9.0-12.5)
[2018-09-14] MEDS ORDERED: COUMADIN2 MG PO (17:47)
[2018-09-14] MEDS ORDERED: ATENOLOL50 MG PO (17:48)
[2018-09-14] MEDS ORDERED: ROPINIROLE0.5 MG PO (17:49)
[2018-09-14] MEDS ORDERED: SPIRIVA IN (17:50)
[2018-09-14] MEDS ORDERED: VENTOLIN HFA IN (17:51)
[2018-09-14] MEDS ORDERED: MAXZIDE-2537.5 MG/TA PO (17:52)
--- NOTE | 2018-09-14 18:10 | NUR ---
PT TRANSPORTED TO [facility] VIA STRETCHER ACCOMPIANED BY SAPNA ANDREW. PT AMBULATED FROM BED TO STRETCHER W/ STRADY GAIT. SOME SOB NOTED. VS DONE. PT O2 ON ROOM AIR 92% PT WOULD LIKE TO NOT HAVE ON OXYGEN AT THIS TIME. O2 PLACED AT BEDSIDE. BP READING 78/40. SURVEILLANCE INSPECTOR TO CALL MD. CALL LIGHT IN REACH. WILL CONTINUE TO MONITOR.
[2018-09-14 18:15] VITALS: BP 78/40
--- NOTE | 2018-09-14 18:18 | NUR ---
PT UPDATED RESULTS BECAME KNOWN. PT TAKEN TO ROOM 272 WITHOUT INCIDENT. REPORT WAS TO KASSIE. HAS GONE HOME TO RETURN WITH HIS C-PAP.
--- NOTE | 2018-09-14 18:24 | NUR ---
CALLED REGARDING BP OF 78/40. STATES TO DO ORTHOSTATIC BP ON PT. IF BLOOD PRESSURE STILL LOW. GIVE 500 ML BOLUS OF FLUID. ORDER WROTE. WILL CONTINUE TO MONITOR.
[2018-09-14 18:30] VITALS: BP 102/50
--- NOTE | 2018-09-14 18:30 | NUR ---
ORTHOSTATIC COMPLETE. LYING- 102/50;64, SITTING- 108/48;69 STANDING- 107/49;65. SPOKE W/ . STATES TO HOLD OFF ON BOLUS UNLESS PT SYSTOLIC BLOOD PRESSURE LESS THAN 90. WILL CONTINUE TO MONITOR.
[2018-09-14 18:35] VITALS: BP 108/48
[2018-09-14 18:40] VITALS: BP 107/49
--- NOTE | 2018-09-14 19:00 | NUR ---
REPORT RECIEVED FROM RAYMOND FERNANDO. PT RESTING IN BED, ALERT AND ORIENTED. NO S/S OF DISTESS. CALL SIDDIQUI WITHIN REACH, WILL CONTINUE TO MONITOR.
--- NOTE | 2018-09-14 20:35 | NUR ---
PT RESTING IN BED ALERT AND ORIENTED, AT BEDSIDE. RESPIRATIONS SHALLOW ON RA, O2 AT BEDSIDE, LUNGS SOUND CLEAR/DIMINISHED. IV #20 LAC, PATENT AND APPEARS HEALTHY. TELE IN PLACE. PT DENIES ANY NEEDS AT THIS TIME. SAFETY PRECAUTIONS IN PLACE. WILL CONTINUE TO MONITOR.
[2018-09-15] VITALS: BP 107/67
--- NOTE | 2018-09-15 00:35 | NUR ---
PT RESTING IN BED. RESPIRATIONS EVEN AND UNLABORED. AT BEDSIDE. NO S/S OF DISTRESS AT THIS TIME. SAFETY PRECAUTIONS IN PLACE, CALL SIDDIQUI WITHIN REACH, WILL CONTINUE TO MONITOR.
--- NOTE | 2018-09-15 04:23 | NUR ---
PT RESTING IN BED WITH EYES CLOSED, AT BEDSIDE. NO S/S OF DISTRESS AT THIS TIME. WILL CONTINUE TO MONITOR.
[2018-09-15 05:20] LABS: HEMOGLOBIN 13.3 g/dl (14.0-18.0); MEAN CELL VOLUME 90.9 fL CALC (80.0-100.0); MEAN CORPUSCULAR HGB 29.5 pG CALC (26.0-32.0); MEAN CORPUSCULAR HGB CONC 32.4 g/L CALC (32.0-36.0); RED BLOOD COUNT 4.51 mill/uL (4.70-6.10); RED CELL DISTRI WIDTH 14.5 % (11.5-15.5)
[2018-09-15 05:39] LABS: ANION GAP 13 (6-22 (CALC)); BUN 18 mg/dL (8-23); BUN/CREATININE RATIO 21 (12-20 (CALC)); CARBON DIOXIDE 23 mmol/l (22-30); CHLORIDE 107 mmol/l (95-108); CREATININE 0.9 mg/dL (0.7-1.3); GFR > 60 ML/MIN (>=60 (CALC)); GFR FOR AFR.AMER. > 60 ML/MIN (>=60 (CALC)); POTASSIUM 4.2 mmol/l (3.5-5.1); SODIUM 138 mmol/l (137-146)
[2018-09-15 05:41] LABS: INTERNATIONAL NORMALIZED RATIO 3.2 RATIO (0.7-1.3)
[2018-09-15 06:07] VITALS: BP 162/92
[2018-09-15 07:50] VITALS: BP 133/69
--- NOTE | 2018-09-15 07:50 | NUR ---
ASSESSMENT IS COMPLETED: IV SITE IS FREE FROM REDNESS OR EDEMA. HR IS REG,PULSES ARE STRONG X4, ABD IS SOFT WITH ACTIVE BS. BREATH SOUNDS ARE CLEAR AND DIMINISHED. O2 NOT IN USE. CONTINUE TO OSBERVE AND MONITOR.
[2018-09-15 11:00] VITALS: BP 111/67
--- NOTE | 2018-09-15 12:05 | NUR ---
PT IS SITTING IN THE CHAIR, NO DISTRESS NOTED. IV SITE IS FREE FROM REDNESS OR EDEMA. FAMILY IN THE ROOM.
[2018-09-15 15:10] VITALS: BP 130/80
--- NOTE | 2018-09-15 15:40 | NUR ---
PT IS SITTING IN THE CHAIR NO DISTRESS NOTED.
--- NOTE | 2018-09-15 16:15 | NUR ---
REPORT RECEIVED FROM TOMÁS MORRISON ALERT AND ORIENTED SITTING UP IN RECLINER, DENIED DISCOMFORT, IV ABT ADMINISTERED, CALL SIDDIQUI IN REACH.
--- NOTE | 2018-09-15 19:00 | NUR ---
RECEIVED REPORT FROM NURSE ANGELINA PATIENT RESTING IN BED, DENIES PAIN OR DISCOMFORT, EVEN UNLABORED BREATHING, IN ROOM. CALL LIGHT WITHIN REACH.
--- NOTE | 2018-09-15 20:00 | NUR ---
PATIENT ALERT AND ORIENTED X3 ABLE TO MAKE NEEDS KNOWN, CURRENTLY WATCHING TV, IN CPAP EVEN UNLABORED BREATHING, WITH SALINE LOCK ON LAC PATENT AND FLUSHS WELL, ON TELE PACED 66, NON PRODUCTIVE COUGH, IN ROOM. CALL LIGHT AT REACH
[2018-09-15 20:04] VITALS: BP 132/77
[2018-09-16] VITALS (7 sets, daily range): BP systolic 126–142; BP diastolic 57–84
--- NOTE | 2018-09-16 | NUR ---
PATIENT RESTING IN BED EYES CLOSED, ON CPAP, EVEN UNLABORED BREATHING CALL LIGHT AT REACH
--- NOTE | 2018-09-16 04:47 | NUR ---
PATIENT RESTING IN BED EVEN UNLABORED BREATHING, ON CPAP, CALL LIGHT AT REACH
[2018-09-16 05:31] LABS: INTERNATIONAL NORMALIZED RATIO 2.9 RATIO (0.7-1.3); PROTHROMBIN TIME 29.9 SECONDS (9.0-12.5)
--- NOTE | 2018-09-16 08:10 | NUR ---
PT SITTING UP IN RECLINER, WATCHING TV; AT BEDSIDE; ASSESSMENT COMPLETED; A/O X3; AM MEDS ADMINISTERED; #20G LAC, FLUSHED WELL, SITE APPEARS HEALTHY; TELE IN PLACE; PT REPORT BM THIS AM; REFUSING TO WEAR SOCKS; AMBULATORY IN ROOM; SAFETY PREAUTION REINFORCED; VOICE NO CONCERNS; CALL SIDDIQUI IN REACH; WILL CONTINUE TO MONITOR.
--- NOTE | 2018-09-16 11:48 | NUR ---
PT SITTING UP IN RECLINER EATING LUNCH; RESP EVEN AND UNLABORED ON 02@2L NC; FAMILIES AT BEDSIDE; VOICE NO CONCERNS; CALL SIDDIQUI IN REACH;
--- NOTE | 2018-09-16 12:01 | NUR ---
DR HWANG AT BEDSIDE TO DISCUSS POC; FAMILIES PRESENT; PRODUCTIVE COUGH NOTED BUT NO SPUTUM TO EXAMINE.
--- NOTE | 2018-09-16 14:04 | NUR ---
PT REMAIN SITTING UP IN RECLINER WATCHING TV; VOICE NO CONCERNS; CALL SIDDIQUI IN REACH.
--- NOTE | 2018-09-16 16:48 | NUR ---
PT SITTING UP IN RECLINER VISITING WITH A FRIEND; ZITHROMAX INFUSING WITHOUT DIFFICULTY; SITE APPEARS HEALTHY; VOICE NO CONCERNS; CALL SIDDIQUI IN REACH.
--- NOTE | 2018-09-16 19:05 | NUR ---
REPORT RECEIVED FROM DAY NURSE. PT IS IN RECLINER, DENIES ANY NEEDS AT THIS TIME AND IS TALKING ON CELL PHONE. NO SO DISTRESS NOTED. WILL FOLLOW-UP WITH MEDICATIONS ORDERED AND ASSESSMENT. CALL LIGHT IS AT SIDE AT THIS TIME.
--- NOTE | 2018-09-16 19:51 | NUR ---
PT ASSESSED AND MEDIATED ORDERS PROVIDE W/IV ANTIBIOITICS. PT IS SITTING IN RECLINER, NO S/O DISTRESS NOTED. HE WAS TALKING ON CELL-PHONE I LEFT THE ROOM,DENIES ANY OTHER NEEDS AT THIS TIME. CALL LIGHT AT SIDE.
--- NOTE | 2018-09-17 02:50 | NUR ---
PT IS SLEEPING W/CPAP ON. NO S/O DISTRESS NOTED AT THIS TIME. CALL LIGHT AT SIDE LIGHTS AND TV ARE OFF.
--- NOTE | 2018-09-17 04:18 | NUR ---
ED CALLED TO REPORT PT HAD 4 BEAT RUN OF V-TACH. PT ASYMPTOMATIC, DENIES ANY SOB,PALPATATIONS, PAIN,N/V, SWEATS, DIZZINESS. PT WAS JUST UP TO STANDING SCALE 5 MIN PRIOR TO REPORTED V-TACH. HE IS BACK TO BED AND DENIES FEELING ANY SYMPTOMS. V/S ASSESSED AT THIS TIME. CALL LIGHT AT SIDE. PT DENIES ANY OTHER NEEDS.
[2018-09-17 04:38] VITALS: BP 142/87
[2018-09-17 05:35] LABS: ALKALINE PHOSPHATASE 60 u/l (38-126); ANION GAP 12 (6-22 (CALC)); BUN 24 mg/dL (8-23); BUN/CREATININE RATIO 29 (12-20 (CALC)); CARBON DIOXIDE 24 mmol/l (22-30); CHLORIDE 109 mmol/l (95-108); CREATININE 0.8 mg/dL (0.7-1.3); GFR > 60 ML/MIN (>=60 (CALC)); GFR FOR AFR.AMER. > 60 ML/MIN (>=60 (CALC)); MAGNESIUM 2.1 mg/dL (1.6-2.3); POTASSIUM 3.9 mmol/l (3.5-5.1); SGOT/AST 21 u/l (19-48); SODIUM 141 mmol/l (137-146); TOTAL PROTEIN 5.7 g/dL (6.3-8.2)
[2018-09-17 05:41] LABS: BILIRUBIN, TOTAL 0.8 mg/dL (0.0-1.4); HEMATOCRIT 40.9 % (39.0-50.0); HEMOGLOBIN 13.3 g/dl (14.0-18.0); IMMATURE GRANULOCYTES 0.4 % (0.0-5.0); INTERNATIONAL NORMALIZED RATIO 2.6 RATIO (0.7-1.3); MEAN CELL VOLUME 90.9 fL CALC (80.0-100.0); MEAN CORPUSCULAR HGB 29.6 pG CALC (26.0-32.0); MEAN CORPUSCULAR HGB CONC 32.5 g/L CALC (32.0-36.0); NEUT# 7.63 thou/uL (1.82-7.42); PROTHROMBIN TIME 26.9 SECONDS (9.0-12.5); RED BLOOD COUNT 4.5 mill/uL (4.70-6.10); RED CELL DISTRI WIDTH 14.2 % (11.5-15.5)
--- NOTE | 2018-09-17 07:00 | NUR ---
REPORT RECEIVED FROM SAPNA MAXWELL; PT USING RESTROOM, AT BEDSIDE.
[2018-09-17 08:49] VITALS: BP 127/75
--- NOTE | 2018-09-17 09:00 | NUR ---
PT SITTING UP IN RECLINER EATING BREAKFAST; RESP EVEN AND UNLABRORED ON ROOM AIR; REFUSE TO WEAR 02 AT THIS TIME; VITALS STABLE; AM MEDS ADMINISTERED; #20G LAC, FLUSHED WELL; TELE IN PLACE; VOICE NO CONCERNS; CALL SIDDIQUI IN REACH; SAFETY PRECAUTION REINFORCE;
[2018-09-17 11:30] VITALS: BP 145/78
--- NOTE | 2018-09-17 11:58 | NUR ---
PT SITTING UP IN RECLINER EATING LUNCH; RESP EVEN AND UNLABORED ON ROOM AIR; FAMILY AT BEDSIDE; VOICE NO CONCERNS; CALL SIDDIQUI IN REACH.
--- NOTE | 2018-09-17 13:11 | NUR ---
dr ruiz at bedside to discuss poc; order schedule kevin, respiratory aware; family at bedside.
[2018-09-17 16:19] VITALS: BP 160/81
--- NOTE | 2018-09-17 18:02 | NUR ---
FATMILY AT BEDSIDE; PT SITTIN UP IN RECLINER EATING SUPPER; ZITHROMAX INFUSING WITHOUT DIFFICULTY; RESP EVEN AND UNLABORED ON ROOM AIR; EMPTIED 300CC CLEAR, HERBERT URINE FROM URINAL; NON PRODUCTIVE COUGH NOTED; CALL SIDDIQUI IN REACH; VOICE NO CONCERNS.
--- NOTE | 2018-09-17 19:10 | NUR ---
PT SITTING IN RECLINER TALKING ON CELL PHONE AND AT SIDE EATING. NO S/O DISTRESS NOTED. REPORT HAS BEEN RECEIVED FROM DAY NURSE.
[2018-09-17 20:15] VITALS: BP 156/84
[2018-09-17 23:20] VITALS: BP 160/78
--- NOTE | 2018-09-17 23:20 | NUR ---
PT BP ELEVATED/MANUAL ASSESSED @160/78,HR 60 CALLED ED PHYSICIAN AND HE REPORTED THAT HE DID NOT RECEIVE REPORT ON THIS PT TONIGHT AND CANNOT TREAT. ARBORIST CLIMBER CONSULTED AND I WAS INSTRUCTED TO CONTINUE TO MONITOR BP CLOSELY PRIOR TO CALLED PHYS.
[2018-09-18 00:25] VITALS: BP 155/65
--- NOTE | 2018-09-18 00:25 | NUR ---
BP REASSESSED MANUALLY @155/65, HR 60. PT DENIES STERN/PAIN OR ANY OTHER SYMPTOMS AND WAS SLEEPING SOUNDLY. PT APPEARS ASYMPTOMATIC AT THIS TIME.
[2018-09-18 05:10] VITALS: BP 169/89
[2018-09-18 05:14] LABS: HEMATOCRIT 42.5 % (39.0-50.0); HEMOGLOBIN 13.8 g/dl (14.0-18.0); IMMATURE GRANULOCYTES 0.3 % (0.0-5.0); MEAN CORPUSCULAR HGB 29.6 pG CALC (26.0-32.0); MEAN CORPUSCULAR HGB CONC 32.5 g/L CALC (32.0-36.0); NEUT# 7.51 thou/uL (1.82-7.42); RED BLOOD COUNT 4.67 mill/uL (4.70-6.10); RED CELL DISTRI WIDTH 13.9 % (11.5-15.5)
[2018-09-18 05:42] LABS: ALKALINE PHOSPHATASE 58 u/l (38-126); ANION GAP 12 (6-22 (CALC)); BUN 23 mg/dL (8-23); BUN/CREATININE RATIO 29 (12-20 (CALC)); CARBON DIOXIDE 25 mmol/l (22-30); CHLORIDE 107 mmol/l (95-108); CREATININE 0.8 mg/dL (0.7-1.3); GFR > 60 ML/MIN (>=60 (CALC)); GFR FOR AFR.AMER. > 60 ML/MIN (>=60 (CALC)); MAGNESIUM 2.1 mg/dL (1.6-2.3); POTASSIUM 4.4 mmol/l (3.5-5.1); SODIUM 140 mmol/l (137-146); TOTAL PROTEIN 5.8 g/dL (6.3-8.2)
[2018-09-18 05:49] LABS: SGOT/AST 39 u/l (19-48)
--- NOTE | 2018-09-18 06:29 | NUR ---
PT MEDICATED FOR ELEVATED BP. PT IS SITTING IN RECLINER W/TV ON AND LIGHTS OFF. DENIES ANY SYMPTOMS AT THIS TIME. APPEARS RELAXED AND STATES THAT HE IS NOT NORMALLY THAT HIGH. 169/89,HR60. CALL LIGHT IN HAND
--- NOTE | 2018-09-18 07:00 | NUR ---
SHIFT CHANGE REPORT, PT AWAKE ALERT AND ORIENTED X 4, STATES HE FEELS BETTER TODAY AND IS READY TO GO HOME, TELE MOITOR IN PLACE, CALL SIDDIQIU IN REACH.
[2018-09-18 08:56] VITALS: BP 149/89
[2018-09-18 10:40] VITALS: BP 110/66
--- NOTE | 2018-09-18 12:00 | NUR ---
DR HWANG ROUNDED, DISCUSSED PLAN OF CARE TO AMBULATE PT AND DO O2 EVAL, THEN D/C HOME, SPOUSE AT BEDSIDE AND BOTH STATED UNDERSTANDING.
[2018-09-18] MEDS ORDERED: DOXYCYCL HYC100 MG PO (14:49)
[2018-09-18 15:25] VITALS: BP 147/82
--- NOTE | 2018-09-18 15:47 | NUR ---
Discharge instructions given. Patient verbalizes understanding of same. Discharged in fair condition via Wheelchair to Home with spouse. All belongings sent with pt.
== END 2018-09-18 15:45 | disposition home or self-care (01) | DRG 194 ==
LOC: ED 16:12 → ED-I 17:16 → ED 17:47 → MS2 17:48
PROVIDERS: Emergency Medicine; ADMIT Internal Medicine; ATTEND Internal Medicine Nephrology
DX: J18.9 Pneumonia, unspecified organism (principal); J44.0 Chronic obstructive pulmonary disease with (acute) lower respiratory infection; I12.9 Hypertensive chronic kidney disease with stage 1 through stage 4 chronic kidney disease, or unspecified chronic kidney disease; N18.3 Chronic kidney disease, stage 3 (moderate); I48.2 Chronic atrial fibrillation; M19.90 Unspecified osteoarthritis, unspecified site; G47.33 Obstructive sleep apnea (adult) (pediatric); N40.0 Benign prostatic hyperplasia without lower urinary tract symptoms; Z87.442 Personal history of urinary calculi; Z95.0 Presence of cardiac pacemaker; Z98.84 Bariatric surgery status; Z87.891 Personal history of nicotine dependence; Z79.01 Long term (current) use of anticoagulants
CPT/HCPCS: G0378; J3475